=== PATIENT | male | born 1995 | race Caucasian/White ===

== ENCOUNTER 2021-01-24 22:29 | Emergency (ER) | payer OTHER ==
[2021-01-24] MEDS ORDERED: AMOX TR/POT CLAV 875MG/125MG TABLETS (FP) PO ONE (22:55)
[2021-01-24] MEDS ORDERED: AMOX TR/POT CLAV 875MG/125MG TABLETS (FP) ONE (22:56)
[2021-01-24] MEDS ORDERED: ACETAMINOPHEN 500 MG TABLET (FP) PO ONE (22:58)
[2021-01-24] MEDS ORDERED: ACETAMINOPHEN 500 MG TABLET (FP) ONE (22:59)
[2021-01-24 23:07] VITALS: BP 135/78; PULSE 104; TEMP 98.7; BMI 22.9
== END 2021-01-24 23:09 | disposition home or self-care (01) ==
LOC: FER 22:29
DX: K04.7 Periapical abscess without sinus (principal)
CPT/HCPCS: 99283-25